=== PATIENT | female | born 2000 | race Caucasian/White ===

== ENCOUNTER 2023-09-22 10:03 | Outpatient (OUT) | payer MEDICAID, SELFPAY ==
--- NOTE | 2023-09-22 10:06 | US_ITS ---
[address] [address] Patient Name: ONEL GARCIA MRN: [id number] date: 2000 Sex: F Assigned Patient Location: [facility] Current Patient Location: [facility] Accession/Order Number: [id number] Exam Date: 09/22/2023 10:06 Report Date: 09/22/2023 11:03 At the request of: ANISA GARCIA Procedure: US OB >= 14 weeks Fetus EXAMINATION: US OB >= 14 weeks Fetus HISTORY: MISSED MENSES COMPARISON: No relevant comparison available. FINDINGS: Heart Rate: 160.0 bpm Amniotic Fluid Volume: Subjectively normal Number: 1.0 Placenta: Anterior Cervix: Closed, 3.9 cm The uterus is normal The ovaries are normal BIOMETRY: BPD: 3.7 cm cm; 17 weeks 3 days; 84% HC: 13.7 cmcm; 17 weeks 1 days , 70% AC: 12.4 cm cm; 18 weeks 0 days, 90% FL: 2.5 cm cm; 17 weeks 3 days; 79.5 % % EFW: 205.6 grams, 7 ounces, greater than 97% FL/AC: 20.1 FL/BPD: 66.3 HC/AC: 1.1 GESTATIONAL AGE: Age by EDC: 16 weeks 4 days DULCE by EDC: 03/04/2024 Age by US: 17 weeks 4 days DULCE by US: 02/26/2024 US/US OB >= 14 weeks Fetus IMPRESSION: Estimated weight greater than the 97th percentile Anderson intrauterine gestation measuring 17 weeks 4 days Electronically authenticated by: MALDONADO WILSON Date: 09/22/2023 11:03
== END 2023-09-22 10:04 | disposition home or self-care (01) ==
LOC: NOMS 10:04
PROVIDERS: Visit Provider Obstetrics & Gynecology
DX: Z34.92 Encounter for supervision of normal pregnancy, unspecified, second trimester (principal); Z3A.17 17 weeks gestation of pregnancy
CPT/HCPCS: 76815

== ENCOUNTER 2023-09-22 11:35 | Outpatient (OUT) | payer MEDICAID, SELFPAY ==
[2023-09-22 12:30] LABS: Basophils Percent Auto 0.2 % (0.2-2.0); Eosinophils Absolute Auto 0.2 10^3/uL (0.0-0.7); Hematocrit 35.7 % (36.0-48.0); Hemoglobin 12.1 g/dL (12.0-16.0); Immature Granulocytes Abs Auto 0.02 10^3/uL (0.00-0.03); Immature Granulocytes Pct Auto 0.2 % (0.0-0.5); Lymphocytes Absolute Auto 1.5 10^3/uL (1.2-3.8); Lymphocytes Percent Auto 16.9 % (20.5-60.0); Mean Corpuscular HGB Conc 33.9 g/dL (29.9-35.2); Mean Corpuscular Hemoglobin 29.7 pg (26.7-34.0); Mean Corpuscular Volume 87.7 fL (81.0-99.0); Mean Platelet Volume 12.1 fL (9.5-13.5); Monocytes Absolute Auto 0.5 10^3/uL (0.3-0.8); Monocytes Percent Auto 6.1 % (1.7-12.0); Neutrophils Absolute Auto 6.4 10^3/uL (1.4-6.5); Neutrophils Percent Auto 74.6 % (43.0-75.0); Platelet Count 166 10^3/uL (150-450); Red Blood Count 4.07 10^6/uL (4.20-5.40); Red Cell Distribution Width 12.9 % (11.0-15.0); White Blood Count 8.6 10^3/uL (4.0-11.0)
[2023-09-22 12:42] LABS: Estimated Average Glucose 85 mg/dL; Glycohemoglobin A1C 4.6 % (4.5-6.2)
[2023-09-22 16:08] LABS: BOX Test Sent Out Y
[2023-09-23 08:12] LABS: HBsAg Screen Negative (Negative); HCV Ab Non Reactive (Non Reactive); HIV Ab/p24 Ag Screen Non Reactive (Non Reactive); Rubella Antibodies, IgG <0.90 index (Immune >0.99)
[2023-09-23 11:14] LABS: Rapid Plasma Reagin, Quant Non Reactive titer (NonRea<1:1)
== END 2023-09-22 11:36 | disposition home or self-care (01) ==
LOC: LAB 11:36
PROVIDERS: Visit Provider Obstetrics & Gynecology
DX: Z34.92 Encounter for supervision of normal pregnancy, unspecified, second trimester (principal); Z3A.17 17 weeks gestation of pregnancy; Z36.0 Encounter for antenatal screening for chromosomal anomalies; N92.6 Irregular menstruation, unspecified
CPT/HCPCS: 36415; 76815; 83036; 85025; 86592; 86762; 86803; 86850; 86900; 86901; 87086; 87340; 87389

== ENCOUNTER 2023-10-23 20:49 | Outpatient (REF) | payer MEDICAID, SELFPAY ==
--- OUTSIDE RECORDS SUMMARY | 2023-10-23 21:06 | XMS_ITS | CCD ---
Author Organization [place] [address] [facility] [employer] [facility] Results Test Name Value Interpretation Reference Range Facil ity Outside Recordson 05-25-2022 Outside Records [id number]#1.00OTG TIFF [facility] Outside Records [id number]#1.00[facility] Outside Records [id number]#1.00OTG [facility] Outside Recordson 01-25-2022 Outside Records [id number]#1.00OT GTIFF [facility] Encounters Encounter Date Encounter Type Care Provider Facility Start: 09-22-2023 End: 09-22-2023 ambulatory Not Available Payers Date Payer Category Payer Medicaid [id number] 2000 Unknown [id number] Summary Purpose Family History No Family History Records FoundNo Family History Records Found Advance Directives No Advanced Directives Records FoundNo Advanced Directives Records Found Additional Source Comments INFORMATION SOURCE (unrecogn ized section and content) DATE CREATED AUTHOR 05/25/2022 [facility] DATE CREATED AUTHOR AUTHORJean-Claude SCHUSTER 09/23/2023 [facility] EPIC FOR RECORDS PERTAINING TO PATIENTS WHO ARE OR HAVE BEEN ENROLLED IN A CHEMICAL DEPENDENCY/SUBSTANCEABUSE PROGRAM, SOME INFORMATION MAY BE OMITTED. This clinical summary was aggregated from multiple sources. Caution should be exercised in using it in the provision of clinical care. This summary normalizes information from multiple sources, and as a consequence, information in this document may materially change the coding, format and clinical context of patient data. In addition, data may be omitted in some cases. CLINICAL DECISIONS SHOULD BE BASED ON THE PRIMARY CLINICAL RECORDS. [facility] [employer] [facility]. provides no warranty or guarantee of the accuracy or completeness of information in this document.
[2023-10-26 11:09] LABS: Age Gdln ACOG Testing Note (.); IGP, rfx Aptima HPV ASCU Note (.)
== END 2023-10-23 20:50 | disposition home or self-care (01) ==
LOC: LAB 20:49
PROVIDERS: Visit Provider Obstetrics & Gynecology
DX: Z01.419 Encounter for gynecological examination (general) (routine) without abnormal findings (principal)
CPT/HCPCS: 88175

== ENCOUNTER 2023-12-18 07:36 | Outpatient (RCR) | payer MEDICAID, SELFPAY ==
--- NOTE | 2023-12-18 | US_ITS ---
[address] [address] Patient Name: ONEL GARCIA MRN: [id number] date: 2000 Sex: F Assigned Patient Location: LAB Current Patient Location: LAB Accession/Order Number: [id number] Exam Date: 12/18/2023 12:55 Report Date: 12/18/2023 14:51 At the request of: ANISA GARCIA Procedure: US OB anatomy EXAMINATION: US OB anatomy HISTORY: Screening for anatomy COMPARISON: No relevant comparison available. TECHNIQUE: Transabdominal sonographic examination was performed for obstetrical and evaluation. FINDINGS: Number: 1 Heart Rate: 138.46 bpm H.B. /min Amniotic Fluid Volume: Subjectively normal Placenta: Anterior, grade 1. The placental edge is 8.1 cm from the internal cervical os Placental Location: ANTERIOR Cervix Length: 3.3 cm, closed Normal anatomy: Nose, lips, orbits, four-chamber heart, RVOT, LVOT, diaphragm, stomach, kidneys, abdominal cord insertion, bladder, umbilical arteries, three-vessel cord, spine, extremities Suboptimal visualization: Lateral ventricles, cerebellum, posterior fossa BIOMETRY: BPD: 7.36 cm; 29 weeks 4 days; 24 % HC: 27.99 cm; 30 weeks 5 days; 32.50 % AC: 25.13 cm; 29 weeks 2 days; 25.40 % FL: 5.47 cm; 28 weeks 6 days; 10.90 % EFW:1375.07 g; 17.60 %, 3 lbs. 1 oz. FL/AC: 21.77 FL/BPD: 74.32 HC/AC: 1.11 GESTATIONAL AGE: Age by EDC: 30 weeks 0 days DULCE by EDC: 2024-02-26 Age by current US: 29 weeks 4 days DULCE by current US: 2024-02-29 US/US OB anatomy IMPRESSION: Suboptimal visualization of intracranial anatomy secondary to advanced gestational age Viable franco intrauterine gestation measuring 29 weeks 4 days Closed cervix measuring 3.3 cm in length *Reference: [employer] Practice Guideline for the performance of Obstetric Ultrasound Examinations, January 08, 2007. Electronically authenticated by: MALDONADO WILSON Date: 12/18/2023 14:51
[2023-12-18 13:44] LABS: Basophils Percent Auto 0.2 % (0.2-2.0); Eosinophils Absolute Auto 0.1 10^3/uL (0.0-0.7); Eosinophils Percent Auto 0.5 % (0.9-7.0); Hemoglobin 12.2 g/dL (12.0-16.0); Immature Granulocytes Abs Auto 0.05 10^3/uL (0.00-0.03); Immature Granulocytes Pct Auto 0.4 % (0.0-0.5); Lymphocytes Absolute Auto 1.5 10^3/uL (1.2-3.8); Lymphocytes Percent Auto 13.1 % (20.5-60.0); Mean Corpuscular HGB Conc 33.9 g/dL (29.9-35.2); Mean Corpuscular Hemoglobin 30.3 pg (26.7-34.0); Mean Corpuscular Volume 89.3 fL (81.0-99.0); Mean Platelet Volume 11.5 fL (9.5-13.5); Monocytes Absolute Auto 0.8 10^3/uL (0.3-0.8); Monocytes Percent Auto 6.4 % (1.7-12.0); Neutrophils Absolute Auto 9.4 10^3/uL (1.4-6.5); Neutrophils Percent Auto 79.4 % (43.0-75.0); Platelet Count 197 10^3/uL (150-450); Red Blood Count 4.03 10^6/uL (4.20-5.40); Red Cell Distribution Width 12.9 % (11.0-15.0); White Blood Count 11.8 10^3/uL (4.0-11.0)
[2023-12-18 13:51] LABS: Glucose 1 Hour 123 mg/dL (<130)
[2023-12-18 13:56] VITALS: BP 138/79; PULSE 104; TEMP 36.6; O2SAT 99
[2023-12-18] MEDS: RHO(D) IMMUNE GLOBULIN 1,500 UNIT SYRINGE 1500 UNIT IM (13:59)
--- NOTE | 2023-12-18 14:10 | PC.NURSE ---
1356: Pt. to [facility] amb. accompanied by sig. other. Seated in recliner. VSS. Relays receiving Rhogam with past with no adverse reaction. Medicated with Rhophylac as ordered, see documentation. No bleeding to site. Bandaid placed prophylactically. Pt. tolerated without c/o. Given bottled water. 1409: Pt. without changes. No bleeding to injection site. D/c'd amb. to home.
== END 2024-01-08 12:14 | disposition home or self-care (01) ==
LOC: LAB 07:36
PROVIDERS: Visit Provider Obstetrics & Gynecology
DX: O26.893 Other specified pregnancy related conditions, third trimester (principal); Z67.91 Unspecified blood type, Rh negative; Z36.89 Encounter for other specified antenatal screening; Z3A.30 30 weeks gestation of pregnancy
CPT/HCPCS: 36415; 76805; 82950; 85025; 86850; 86900; 86901; J2791

== ENCOUNTER 2024-01-30 19:30 | Outpatient (REF) | payer MEDICAID, SELFPAY ==
--- OUTSIDE RECORDS SUMMARY | 2024-01-30 19:34 | XMS_ITS | CCD ---
Author Organization [facility] Care Team Providers Care Die Storage Clerk Name Role Phone BEN MONTALVO Admitting Unavailable BEN MONTALVO Attending Unavailable ANABEL COOL Primary Care Unavailable ANISA MAGALLANES Attending Unavailable GUILLERMINA MULLER Attending Unavailable GUILLERMINA MULLER Attending Unavailable Unavailable Primary Care Provider Unavailabl e Medications Current Medications Medication Drug Class(es) Dates Sig (Normalized) Sig (Original) docusate sodium 100 mg oral capsule (1 source) Start: 12-06-2023 take 1 capsule by mouth three times daily as needed Docusate Sodium (DSS) 100 MG capsule Take 100 mg by mouth 3 (three) times a day as needed 12/06/2023 Active omeprazole 40 mg delayed release oral capsule (1 source) Proton Pump Inhibitor Start: 12-06-2023 take 1 capsule by mouth in the morning omeprazole (PriLOSEC) [address] capsule Take 40 mg by mouth in the morning. 12/06/2023 Active Problems Problem Classification Problem Date Documented Da te Episodic/Chronic Abdominal pain (1 source) Abdominal pain Onset: 12-06-2023 Episodic Other complications of (1 source) Late vomiting of ; Translations: [Late vomiting of ] Onset: 12-06-2023 Episodic Results Test Name Value Interpretation Reference Range Facil ity CBC AND AUTO DIFFon 12-06-19 ABSOLUTE BASOPHIL 0.0 X10E9/L [facility]0-0.2 [facility] Comment on above: Performed By: #### C BCA, CMP, 2532-0, 3084-1 #### [facility] ([id number]) [address] [place] [address], [place] [address] ABSOLUTE NEUTROPHIL 8.7 X10E9/L High 1.5-6.6 [facility] Comment on above: Performed By: #### C CORIN CMP, 0, 3083-04 #### [facility] ([id number]) [address] [place] [address] 73223 Basophils/100 WBC (Bld) 0.3 % Normal [facility] Comment on above: Performed By: #### C CORIN CMP, 0, 3083- #### [facility] ([id number]) [address] [place] [address] 20236 Eosinophils (Bld) [#/Vol] 0.1 10*3/uL Normal 0.0-0.4 [facility] Comment on above: Performed By: #### Karthikeyan COOMBS CMP, 0, 3083-04 #### [facility] ([id number]) [address] [place] [address] 35566 Eosinophils/100 WBC (Bld) 0.5 % Normal [facility] Comment on above: Performed By: #### Karthikeyan COOMBS CMP, 0, 3083-04 #### [facility] ([id number]) [address] [place] [address] 61073 Erythrocyte distribution width (RBC) [Ratio] 13.5 % Normal 11.5-15.0 [facility] Comment on above: Performed By: #### Karthikeyan COOMBS CMP, 0, 3083-04 #### [facility] ([id number]) [address] [place] [address] 96308 Hematocrit (Bld) [Volume fraction] 38.3 % Normal 35-47 [facility] Comment on above: Performed By: #### Karthikeyan COOMBS CMP, 0, 3083-04 #### [facility] ([id number]) [address] [place] [address] 68316 Hemoglobin (Bld) [Mass/Vol] 13.2 g/dL Normal 11.7-15.5 [facility] Comment on above: Performed By: #### C HEMANT COOMBS, 0, 3083-04 #### [facility] ([id number]) [address] [place] [address] 85555 Lymphocytes (Bld) [#/Vol] 1.3 10*3/uL Normal 1.0-3.5 [facility] Comment on above: Performed By: #### C HEMANT COOMBS, 0, 3083-04 #### [facility] ([id number]) [address] [place] [address] 70665 Lymphocytes/100 WBC (Bld) 12.5 % Normal [facility] Comment on above: Performed By: #### C HEMANT COOMBS, 0, 3083-04 #### [facility] ([id number]) [address] [place] [address] 83843 MCH (RBC) [Entitic mass] 31.2 pg Normal 27-34 [facility] Comment on above: Performed By: #### C HEMANT COOMBS, 0, 3083-04 #### [facility] ([id number]) [address] [place] [address] 45693 MCHC (RBC) [Mass/Vol] 34.5 g/dL Normal 32-36 [facility] Comment on above: Performed By: #### C HEMANT COOMBS, 0, 3083-04 #### [facility] ([id number]) [address] [place] [address] 12381 MCV (RBC) [Entitic vol] 90 fL Normal 80-100 [facility] Comment on above: Performed By: #### C HEMANT COOMBS, 0, 3083-04 #### [facility] ([id number]) [address] [place] [address] 21265 Monocytes (Bld) [#/Vol] 0.7 10*3/uL Normal 0-0.9 [facility] Comment on above: Performed By: #### C CORIN CMP, 0, 3083-04 #### [facility] ([id number]) [address] [place] [address] 90700 Monocytes/100 WBC (Bld) 6.3 % Normal [facility] Comment on above: Performed By: #### C CORIN CMP, 0, 3083-04 #### [facility] ([id number]) [address] [place] [address] 42966 Neutrophils/100 WBC (Bld) 80.4 % Normal [facility] Comment on above: Performed By: #### C CORIN CMP, 0, 3083-04 #### [facility] ([id number]) [address] [place] [address] 93205 Platelet mean volume (Bld) [Entitic vol] 10.0 fL Normal 7-12 [facility] Comment on above: Performed By: #### C CORIN CMP, 0, 3083-04 #### [facility] ([id number]) [address] [place] [address] 98702 Platelets (Bld) [#/Vol] 205 10*3/uL Normal 150-450 [facility] Comment on above: Performed By: #### C CORIN CMP, 0, 3083-04 #### [facility] ([id number]) [address] [place] [address] [place] [address] RBC COUNT 4.25 X10E12/L Normal 3.80-5.20 [facility] Comment on above: Performed By: #### C CORIN CMP, 0, 3083-04 #### [facility] ([id number]) [address] [place] [address] 91806 WBC (Bld) [#/Vol] 10.8 10*3/uL Normal 4.0-11.0 [facility] Comment on above: Performed By: #### C BCA, CMP, 2532-0, 3084-1 #### [facility] ([id number]) [address] [place] [address] 54889 COMPREHENSIVE METABOLIC PANE Sg 12-06-2023 Albumin [Mass/Vol] 3.7 g/dL Normal 3.2-5.3 [facility] Comment on above: Performed By: #### C BCA, CMP, 2532-0, 4-1 #### [facility] ([id number]) [address] [place] [address] 23127 ALP [Catalytic activity/Vol] 86 U/L Normal 39-130 [facility] Comment on above: Performed By: #### C BCA, CMP, 2531-0, 4-1 #### [facility] ([id number]) [address] [place] [address] [place] [address] ALT [Catalytic activity/Vol] 39 U/L High 0-31 [facility] Comment on above: Performed By: #### C BCA, CMP, 2531-0, 3084-1 #### [facility] ([id number]) [address] [place] [address] 09299 Anion gap [Moles/Vol] 9 mmol/L Normal 5-15 [facility] Comment on above: Performed By: #### C BCA, CMP, 2-0, 3083-1 #### [facility] ([id number]) [address] [place] [address] 32180 AST [Catalytic activity/Vol] 40 U/L Normal 0-41 [facility] Comment on above: Performed By: #### C BCA, CMP, 2532-0, 3084-1 #### [facility] ([id number]) [address] [place] [address] 02708 Bilirubin [Mass/Vol] 0.7 mg/dL Normal 0.3-1.2 [facility] Comment on above: Performed By: #### C BCA, CMP, 2532-0, 3083-1 #### [facility] ([id number]) [address] [place] [address] 07038 Calcium [Mass/Vol] 8.8 mg/dL Normal 8.5-10.5 [facility] Comment on above: Performed By: #### C BCA, CMP, 2532-0, 3083-1 #### [facility] ([id number]) [address] [place] [address] 52152 Chloride [Moles/Vol] 104 mmol/L Normal 98-109 [facility] Comment on above: Performed By: #### C BCA, CMP, 2532-0, 3083- #### [facility] ([id number]) [address] [place] [address] 56786 CO2 [Moles/Vol] 21 mmol/L Low 22-32 [facility] Comment on above: Performed By: #### C BCA, CMP, 2532-0, 3083-1 #### [facility] ([id number]) [address] [place] [address] 64819 Creatinine [Mass/Vol] 0.65 mg/dL Normal 0.40-1.00 [facility] Comment on above: Result Comment: METH OD TRACEABLE TO IDMS STANDARD Performed By: #### C BCA, CMP, 2532-0, 3083-04 #### [facility] ([id number]) [address] [place] [address] 62880 eGFR (CKD-EPI) NON-RACE DEPENDENT >90 Normal >59 [facility] Comment on above: Result Comment: Reported eGFR is based on the CKD-EPI 2020 equation that does not use a race coefficient. Performed By: #### C BCA, CMP, 2532-0, 3083-1 #### [facility] ([id number]) [address] [place] [address] 45911 Glucose [Mass/Vol] 94 mg/dL Normal 65-99 [facility] Comment on above: Performed By: #### C CORIN CMP, 2532-0, 3083-1 #### [facility] ([id number]) [address] [place] [address] 03914 Potassium [Moles/Vol] 3.3 mmol/L Low 3.5-5.0 [facility] Comment on above: Performed By: #### C CORIN, CMP, 2531-0, 3083- #### [facility] ([id number]) [address] [place] [address] 15493 Protein [Mass/Vol] 7.1 g/dL Normal 6.0-8.0 [facility] Comment on above: Performed By: #### C CORIN, CMP, 0, 3083-04 #### [facility] ([id number]) [address] [place] [address] 88759 Sodium [Moles/Vol] 134 mmol/L Normal 134-146 [facility] Comment on above: Performed By: #### C CORIN, CMP, 0, 3083-04 #### [facility] ([id number]) [address] [place] [address] 01222 Urea nitrogen [Mass/Vol] 9 mg/dL Normal 5-23 [facility] Comment on above: Performed By: #### C BCA, CMP, 0, 3083- #### [facility] ([id number]) [address] [place] [address] 40770 LDH [Catalytic activity/Vol] on 12-06-2023 LDH 110 U/L Normal 100-235 [facility] Comment on above: Performed By: #### C BCA, CMP, 2-0, 3083- #### [facility] ([id number]) [address] [place] [address] 69482 PROTEIN CREAT RATIOon 2023 RANDOM URINE PROTEIN 380 mg/L High <120 [facility] Comment on above: Performed By: #### U PCR #### [facility] ([id number]) [address] [place] [address] 08654 U/PRO/CUB REPORTER RATIO CALC 0.09 Normal <0.2 [facility] Comment on above: Result Comment: Neph rotic Syndrome is associated with ratios >3.5 Performed By: #### U PCR #### [facility] ([id number]) [address] [place] [address] 27340 URINE CREATININE,RDM 433.01 mg/dL Normal Pr [facility] Comment on above: Performed By: #### U PCR #### [facility] ([id number]) [address] [place] [address] 45045 URIC ACIDon 12-06-2023 Urate [Mass/Vol] 4.1 mg/dL Normal 2.6-7.2 [facility] Comment on above: Performed By: #### C BCA, CMP, 2532-0, 3084-1 #### [facility] ([id number]) [address] [place] [address] 11414 URINALYSISon 12-06-2023 Bilirubin Ql (U) Large Abnormal NEG [facility] Comment on above: Result Comment: Not confirmed, interpret positive results with caution. Performed By: #### U A #### [facility] ([id number]) [address] [place] [address] 26941 BLOOD/HGB Negative Normal NEG [facility] Comment on above: Performed By: #### U A #### [facility] ([id number]) [address] [place] [address] 34677 Color (U) YELLOW Normal YELLOW [facility] Comment on above: Performed By: #### U A #### [facility] ([id number]) [address] [place] [address] 34338 Glucose Ql (U) Negative Normal NEG [facility] Comment on above: Performed By: #### U A #### [facility] ([id number]) [address] [place] [address] 41306 Ketones Ql (U) >80 Abnormal NEG [facility] Comment on above: Performed By: #### U A #### [facility] ([id number]) [address] [place] [address] 50882 Leukocyte esterase Test strip Ql (U) Trace Abnormal NEG [facility] Comment on above: Performed By: #### U A #### [facility] ([id number]) [address] [place] [address] 04857 MUCOUS PRESENT Abnormal NONE [facility] Comment on above: Performed By: #### U A #### [facility] ([id number]) [address] [place] [address] 47335 Nitrite Ql (U) Positive Abnormal NEG [facility] Comment on above: Performed By: #### U A #### [facility] ([id number]) [address] [place] [address] 17427 pH (U) 7.0 [pH] Normal 5.0-8.5 [facility] Comment on above: Performed By: #### U A #### [facility] ([id number]) [address] [place] [address] 91198 Protein Ql (U) 100 mg/dL Abnormal NEG [facility] Comment on above: Performed By: #### U A #### [facility] ([id number]) [address] [place] [address] 10078 R.B.CELLS 4 /hpf Normal 0-5 [facility] Comment on above: Performed By: #### U A #### [facility] ([id number]) [address] [place] [address] 26834 Specific gravity (U) [Rel density] 1.020 Normal 1.003-1.035 [facility] Comment on above: Performed By: #### U A #### [facility] ([id number]) [address] [place] [address] 96725 SQUAMOUS EPITHELIUM 38 /hpf High 0-5 [facility] Comment on above: Performed By: #### U A #### [facility] ([id number]) [address] [place] [address] 39109 TURBIDITY HAZY Abnormal CLEAR [facility] Comment on above: Performed By: #### U A #### [facility] ([id number]) [address] [place] [address] 02737 Urobilinogen Qn (U) 1.0 {Rod'U}/dL Normal <1.1 [facility] Comment on above: Performed By: #### U A #### [facility] ([id number]) [address] [place] [address] 04530 W.B.CELLS 20 /hpf High 0-5 [facility] Comment on above: Performed By: #### U A #### [facility] ([id number]) [address] [place] [address] 12624 URINE CULTUREon 12-06-2023 Bacteria identified Cx Nom (U) SPECIMEN NOTES URINE RECEIVED WITHOUT PRESERVATIVE CULTURE RESULTS NO GROWTH AT <1000 CFU/mL Normal [facility] Comment on above: Performed By: #### 6 30-4 #### [facility] ([id number]) [address], [address] [place] [address] Outside [employer]son 05-25-2022 Outside Records [id number] [facility] [id number] [facility] [id number] [facility] 01-25-2022 Outside Records [id number] 7[facility] Encounter Date Encounter Type Care Provider Facility Start: 01-29-2024 End: 01-29-2024 Bamboo flowsheet Anisa Elpidio DO Work Phone: [facility] Start: 01-29-2024 End: 01-29-2024 Bamboo flowsheet Anisa Elpidio DO Work Phone: [facility] Start: 12-18-2023 End: 12-18-2023 ambulatory GUILLERMINA MULLER Not Available Start: 12-06-2023 End: 12-06-2023 ambulatory [facility] Start: 12-04-2023 End: 12-04-2023 ambulatory GUILLERMINA RENZO Not Available Start: 10-23-2023 End: 10-23-2023 ambulatory ANISA ELPIDIO Not Available Start: 09-22-2023 End: 09-22-2023 ambulatory ANISA ELPIDIO Not Available Plan of Treatment Date Care Activity Detail Author Start: 01-29-2024 End: 01-29-2024 Patient encounter procedure 01/29/2024 1:50 PM EDT Routine [facility] [address] [place] [address] Anisa Magallanes, DO [address] [place], [place] [id number] Arrived [facility] Comment on above: Arrived Payers Date Payer Category Payer Medicaid [employer] [place] [place] [id number] 2022 Medicaid [id number] 2000 Unknown [id number] 2000 Unknown [id number] 2000 Unknown [id number] 2000 Unknown [id number] 2000 Unknown [id number] Social History Date Type Detail Facility Tobacco smoking stat [facility] Tobacco smoking consumption unknown [facility] Start: 06-05-2023 [facility] Start: 2000 Sex assigned at Not on file [facility] Gender identity Not on file [facility] are Summary Purpose Family History No Family History Records FoundNo Family History Records FoundNo Family History Records Found Advance Directives No Advanced Directives Records FoundNo Advanced Directives Records FoundNo Advanced Directives Records Found Additional Source Comments INFORMATION SOURCE (unrecogn ized section and content) DATE CREATED AUTHOR 05/25/2022 [facility] DATE CREATED AUTHOR AUTHOR'S ORGANIZ ATION 12/08/2023 [facility] DATE CREATED AUTHOR AUTHOR'S ORGANIZ ATION 12/19/2023 [facility] EPIC FOR RECORDS PERTAINING TO PATIENTS [...] BE BASED ON THE PRIMARY CLINICAL RECORDS. [facility] [employer] [facility]. provides no warranty or guarantee of the accuracy or completeness of information in this document.
== END 2024-01-30 19:31 | disposition home or self-care (01) ==
LOC: LAB 19:30
PROVIDERS: Visit Provider Obstetrics & Gynecology
DX: Z34.93 Encounter for supervision of normal pregnancy, unspecified, third trimester (principal); Z3A.36 36 weeks gestation of pregnancy
CPT/HCPCS: 87081; 87150

== ENCOUNTER 2024-02-19 05:45 | Inpatient (IN) | payer MEDICAID, SELFPAY ==
[2024-02-19] VITALS (19 sets, daily range): BP systolic 101–157; BP diastolic 56–81; PULSE 60–103; TEMP 36.3–36.6
--- OUTSIDE RECORDS SUMMARY | 2024-02-19 05:48 | XMS_ITS | CCD ---
Author Organization [facility] Care Team Providers Care Special Ed Assistant Name Role Phone BEN MONTALVO Admitting Unavailable BEN MONTALVO Attending Unavailable ANNABEL COOL Primary Care Unavailable Unavailable Primary Care Provider UnavailANISA Dexter Attending Unavailable YUSRA MULLER Attending Unavailable YUSRA MULLER Attending Unavailable ANISA MAGALLANES Attending Unavailable ANISA MAGALLANES Attending Unavailable RENZO, YUSRA Attending Unavailable RENZO, YUSRA Attending Unavailable Medications Current Medications Medication Drug Class(es) Dates Sig (Normalized) Sig (Original) docusate sodium 100 mg oral capsule (10 sources) Start: 12-06-2023 take 1 capsule by mouth three times daily as needed Docusate Sodium (DSS) 100 MG capsule Take 100 mg by mouth 3 (three) times a day as needed 12/06/2023 Active omeprazole 40 mg delayed release oral capsule (10 sources) Proton Pump Inhibitor Start: 12-06-2023 take 1 capsule by mouth in the morning omeprazole (PriLOSEC) [address] capsule Take 40 mg by mouth in the morning. 12/06/2023 Active ondansetron 4 mg disintegrating oral tablet (9 sources) Serotonin-3 Receptor Antagonist Start: 01-29-2024 End: 02-28-2024 take 1 tablet by mouth every six hours for nausea ondansetron ODT (Zofran-ODT) 4 MG disintegrating tablet Indications: Nausea and vomiting in Take 1 tablet (4 mg) by mouth every 6 (six) hours if needed for nausea or vomiting 30 tablet 2 01/29/2024 02/28/2024 Active Problems Problem Classification Problem Date Documented Da te Episodic/Chronic Abdominal pain (1 source) Abdominal pain Onset: 12-06-2023 Episodic Other complications of (1 source) Late vomiting of ; Translations: [Late vomiting of ] Onset: 12-06-2023 Episodic Other and delivery including normal (6 sources) Third trimester ; Translations: [Encounter for supervision of normal , unspecified, third trimester] 01-30-2024 Episodic Residual codes; unclassified (2 sources) Gestation period, 36 weeks; Translations: [36 weeks gestation of ] 01-30-2024 Episodic Residual codes; unclassified (2 sources) Gestation period, 37 weeks; Translations: [37 weeks gestation of ] 02-06-2024 Episodic Residual codes; unclassified (2 sources) Gestation period, 38 weeks; Translations: [38 weeks gestation of ] 02-15-2024 Episodic Results Test Name Value Interpretation Reference Range Facil ity Urinalysis macro (dipstick) panel (U)on 02-15-2024 Bilirubin, UA Positive Negative - 4(70) +++ mg/dL [facility] Comment on above: small Blood, UA Negative Negative - 50 Jae/mcL [facility] Clarity, UA Cloudy [facility] Color, UA Yellow [facility] Glucose, UA Negative Negative - 1999(110) ++++ mg/dL [facility] Interpretation and review of laboratory results Abnormal [facility] Ketones, UA Positive Negative - 160(16) ++++ mg/dL [facility] Comment on above: trace Leukocytes, UA Positive Negative - 500+++ Allison/mcL [facility] Comment on above: small Nitrite, UA Negative Negative - Positive [facility] pH, UA 7 5 - 9 [facility] Protein, UA Positive Negative - 1999(20) ++++ mg/dL [facility] Comment on above: 30 Spec Grav, UA 1.03 1 - 1.03 [facility] Urobilinogen, UA 1.0 0.2 - 12 mg/dL [facility] CBC AND AUTO DIFFon 12-06-19 24 ABSOLUTE BASOPHIL 0.0 X10E9/L Normal 0.0-0.2 [facility] Comment on above: Performed By: #### C BCA, CMP, 2532-0, 3084-1 #### [facility] ([id number]) [address] [place] [address], [place] [address] ABSOLUTE NEUTROPHIL 8.7 X10E9/L High 1.5-6.6 [facility] Comment on above: Performed By: #### Karthikeyan COOMBS CMP, 0, 3083-04 #### [facility] ([id number]) [address] [place] [address] 90259 Basophils/100 WBC (Bld) 0.3 % Normal [facility] Comment on above: Performed By: #### Karthikeyan COOMBS CMP, 0, 3083-04 #### [facility] ([id number]) [address] [place] [address] 23265 Eosinophils (Bld) [#/Vol] 0.1 10*3/uL Normal 0.0-0.4 [facility] Comment on above: Performed By: #### Karthikeyan COOMBS CMP, 0, 3083-04 #### [facility] ([id number]) [address] [place] [address] 65054 Eosinophils/100 WBC (Bld) 0.5 % Normal [facility] Comment on above: Performed By: #### Karthikeyan COOMBS CMP, 0, 3083-04 #### [facility] ([id number]) [address] [place] [address] 74897 Erythrocyte distribution width (RBC) [Ratio] 13.5 % Normal 11.5-15.0 [facility] Comment on above: Performed By: #### Karthikeyan COOMBS CMP, 0, 3083-04 #### [facility] ([id number]) [address] [place] [address] 97373 Hematocrit (Bld) [Volume fraction] 38.3 % Normal 35-47 [facility] Comment on above: Performed By: #### Karthikeyan COOMBS CMP, 0, 3083-04 #### [facility] ([id number]) [address] [place] [address] 70252 Hemoglobin (Bld) [Mass/Vol] 13.2 g/dL Normal 11.7-15.5 [facility] Comment on above: Performed By: #### C HEMANT COOMBS, 0, 3083-04 #### [facility] ([id number]) [address] [place] [address] 23680 Lymphocytes (Bld) [#/Vol] 1.3 10*3/uL Normal 1.0-3.5 [facility] Comment on above: Performed By: #### Karthikeyan COOMBS CMP, 0, 3083-04 #### [facility] ([id number]) [address] [place] [address] 91885 Lymphocytes/100 WBC (Bld) 12.5 % Normal [facility] Comment on above: Performed By: #### Karthikeyan COOMBS CMP, 0, 3083-04 #### [facility] ([id number]) [address] [place] [address] 86151 MCH (RBC) [Entitic mass] 31.2 pg Normal 27-34 [facility] Comment on above: Performed By: #### Karthikeyan COOMBS CMP, 0, 3083-04 #### [facility] ([id number]) [address] [place] [address] 91669 MCHC (RBC) [Mass/Vol] 34.5 g/dL Normal 32-36 [facility] Comment on above: Performed By: #### Karthikeyan COOBMS CMP, 0, 3083-04 #### [facility] ([id number]) [address] [place] [address] 95365 MCV (RBC) [Entitic vol] 90 fL Normal 80-100 [facility] Comment on above: Performed By: #### Karthikeyan COOMBS CMP, 0, 3083-04 #### [facility] ([id number]) [address] [place] [address] 35874 Monocytes (Bld) [#/Vol] 0.7 10*3/uL Normal 0-0.9 [facility] Comment on above: Performed By: #### C CORIN CMP, 0, 3083-04 #### [facility] ([id number]) [address] [place] [address] 82042 Monocytes/100 WBC (Bld) 6.3 % Normal [facility] Comment on above: Performed By: #### Karthikeyan COOMBS CMP, 2531-0, 3083-04 #### [facility] ([id number]) [address] [place] [address] 72437 Neutrophils/100 WBC (Bld) 80.4 % Normal [facility] Comment on above: Performed By: #### C CORIN CMP, 0, 3083-04 #### [facility] ([id number]) [address] [place] [address] 76360 Platelet mean volume (Bld) [Entitic vol] 10.0 fL Normal 7-12 [facility] Comment on above: Performed By: #### Karthikeyan COOMBS CMP, 0, 3083-04 #### [facility] ([id number]) [address] [place] [address] 64750 Platelets (Bld) [#/Vol] 205 10*3/uL Normal 150-450 [facility] Comment on above: Performed By: #### Karthikeyan COOMBS CMP, 0, 3083-04 #### [facility] ([id number]) [address] [place] [address] 71899 RBC COUNT 4.25 X10E12/L Normal 3.80-5.20 [facility] Comment on above: Performed By: #### C CORIN, CMP, 2531-0, 3083-04 #### [facility] ([id number]) [address] [place] [address] 49948 WBC (Bld) [#/Vol] 10.8 10*3/uL Normal 4.0-11.0 [facility] Comment on above: Performed By: #### C BCA, CMP, 2532-0, 3084-1 #### [facility] ([id number]) [address] [place] [address] 99621 COMPREHENSIVE METABOLIC PANE Sg 12-06-2023 Albumin [Mass/Vol] 3.7 g/dL Normal 3.2-5.3 [facility] Comment on above: Performed By: #### C BCA, CMP, 2532-0, 3084-1 #### [facility] ([id number]) [address] [place] [address] 62602 ALP [Catalytic activity/Vol] 86 U/L Normal 39-130 [facility] Comment on above: Performed By: #### C BCA, CMP, 2532-0, 3084-1 #### [facility] ([id number]) [address] [place] [address] 32492 ALT [Catalytic activity/Vol] 39 U/L High 0-31 [facility] Comment on above: Performed By: #### C BCA, CMP, 2532-0, 3084-1 #### [facility] ([id number]) [address] [place] [address] 37751 Anion gap [Moles/Vol] 9 mmol/L Normal 5-15 [facility] Comment on above: Performed By: #### C BCA, CMP, 2532-0, 3084-1 #### [facility] ([id number]) [address] [place] [address] 16492 AST [Catalytic activity/Vol] 40 U/L Normal 0-41 [facility] Comment on above: Performed By: #### C BCA, CMP, 2532-0, 3084-1 #### [facility] ([id number]) [address] [place] [address] 83145 Bilirubin [Mass/Vol] 0.7 mg/dL Normal 0.3-1.2 [facility] Comment on above: Performed By: #### C CORIN CMP, 2532-0, 3083-1 #### [facility] ([id number]) [address] [place] [address] 20202 Calcium [Mass/Vol] 8.8 mg/dL Normal 8.5-10.5 [facility] Comment on above: Performed By: #### C CORIN, CMP, 2-0, 3083-1 #### [facility] ([id number]) [address] [place] [address] 39437 Chloride [Moles/Vol] 104 mmol/L Normal 98-109 [facility] Comment on above: Performed By: #### C CORIN CMP, 0, 3083-04 #### [facility] ([id number]) [address] [place] [address] 44819 CO2 [Moles/Vol] 21 mmol/L Low 22-32 [facility] Comment on above: Performed By: #### C CORIN CMP, 0, 3083-04 #### [facility] ([id number]) [address] [place] [address] 27234 Creatinine [Mass/Vol] 0.65 mg/dL Normal 0.40-1.00 [facility] Comment on above: Result Comment: METH OD TRACEABLE TO IDMS STANDARD Performed By: #### C CORIN, CMP, 2531-0, 3083-04 #### [facility] ([id number]) [address] [place] [address] 41709 eGFR (CKD-EPI) NON-RACE DEPENDENT >90 Normal >59 [facility] Comment on above: Result Comment: Reported eGFR is based on the CKD-EPI 2020 equation that does not use a race coefficient. Performed By: #### C BCA, CMP, 2531-0, 3083- #### [facility] ([id number]) [address] [place] [address] 59904 Glucose [Mass/Vol] 94 mg/dL Normal 65-99 [facility] Comment on above: Performed By: #### C CORIN, CMP, 2532-0, 3083-1 #### [facility] ([id number]) [address] [place] [address] 79907 Potassium [Moles/Vol] 3.3 mmol/L Low 3.5-5.0 [facility] Comment on above: Performed By: #### C CORIN, CMP, 2531-0, 3083- #### [facility] ([id number]) [address] [place] [address] 91585 Protein [Mass/Vol] 7.1 g/dL Normal 6.0-8.0 [facility] Comment on above: Performed By: #### C BCA, CMP, 0, 3083-04 #### [facility] ([id number]) [address] [place] [address] 01382 Sodium [Moles/Vol] 134 mmol/L Normal 134-146 [facility] Comment on above: Performed By: #### C BCA, CMP, 2530, 3083- #### [facility] ([id number]) [address] [place] [address] 63874 Urea nitrogen [Mass/Vol] 9 mg/dL Normal 5-23 [facility] Comment on above: Performed By: #### C BCA, CMP, 0, 3083- #### [facility] ([id number]) [address] [place] [address] 52915 LDH [Catalytic activity/Vol] on 12-06-2023 LDH 110 U/L Normal 100-235 [facility] Comment on above: Performed By: #### C BCA, CMP, 2531-0, 3083- #### [facility] ([id number]) [address] [place] [address] 67467 PROTEIN CREAT RATIOon 2023 RANDOM URINE PROTEIN 380 mg/L High <120 [facility] Comment on above: Performed By: #### U PCR #### [facility] ([id number]) [address] [place] [address] 26989 U/PRO/BANK ACCOUNTANT RATIO CALC 0.09 Normal <0.2 [facility] Comment on above: Result Comment: Neph rotic Syndrome is associated with ratios >3.5 Performed By: #### U PCR #### [facility] ([id number]) [address] [place] [address] 88869 URINE CREATININE,RDM 433.01 mg/dL Normal Pr [facility] Comment on above: Performed By: #### U PCR #### [facility] ([id number]) [address] [place] [address] 34701 URIC ACIDon 12-06-2023 Urate [Mass/Vol] 4.1 mg/dL Normal 2.6-7.2 [facility] Comment on above: Performed By: #### C BCA, CMP, 2532-0, 3084-1 #### [facility] ([id number]) [address] [place] [address] 75904 URINALYSISon 12-06-2023 Bilirubin Ql (U) Large Abnormal NEG [facility] Comment on above: Result Comment: Not confirmed, interpret positive results with caution. Performed By: #### U A #### [facility] ([id number]) [address] [place] [address] 29284 BLOOD/HGB Negative Normal NEG [facility] Comment on above: Performed By: #### U A #### [facility] ([id number]) [address] [place] [address] 72423 Color (U) YELLOW Normal YELLOW [facility] Comment on above: Performed By: #### U A #### [facility] ([id number]) [address] [place] [address] 39936 Glucose Ql (U) Negative Normal NEG [facility] Comment on above: Performed By: #### U A #### [facility] ([id number]) [address] [place] [address] 61270 Ketones Ql (U) >80 Abnormal NEG [facility] Comment on above: Performed By: #### U A #### [facility] ([id number]) [address] [place] [address] 21399 Leukocyte esterase Test strip Ql (U) Trace Abnormal NEG [facility] Comment on above: Performed By: #### U A #### [facility] ([id number]) [address] [place] [address] 87255 MUCOUS PRESENT Abnormal NONE [facility] Comment on above: Performed By: #### U A #### [facility] ([id number]) [address] [place] [address] 31743 Nitrite Ql (U) Positive Abnormal NEG [facility] Comment on above: Performed By: #### U A #### [facility] ([id number]) [address] [place] [address] 89369 pH (U) 7.0 [pH] Normal 5.0-8.5 [facility] Comment on above: Performed By: #### U A #### [facility] ([id number]) [address] [place] [address] 01838 Protein Ql (U) 100 mg/dL Abnormal NEG [facility] Comment on above: Performed By: #### U A #### [facility] ([id number]) [address] [place] [address] 79030 R.B.CELLS 4 /hpf Normal 0-5 [facility] Comment on above: Performed By: #### U A #### [facility] ([id number]) [address] [place] [address] 64851 Specific gravity (U) [Rel density] 1.020 Normal 1.003-1.035 [facility] Comment on above: Performed By: #### U A #### [facility] ([id number]) [address] [place] [address] 26888 SQUAMOUS EPITHELIUM 38 /hpf High 0-5 [facility] Comment on above: Performed By: #### U A #### [facility] ([id number]) [address] [place] [address] 56038 TURBIDITY HAZY Abnormal CLEAR [facility] Comment on above: Performed By: #### U A #### [facility] ([id number]) [address] [place] [address] 86095 Urobilinogen Qn (U) 1.0 {Rod'U}/dL Normal <1.1 [facility] Comment on above: Performed By: #### U A #### [facility] ([id number]) [address] [place] [address] 09462 W.B.CELLS 20 /hpf High 0-5 [facility] Comment on above: Performed By: #### U A #### [facility] ([id number]) [address] [place] [address] 49191 URINE CULTUREon 12-06-2023 Bacteria identified Cx Nom (U) SPECIMEN NOTES URINE RECEIVED WITHOUT PRESERVATIVE CULTURE RESULTS NO GROWTH AT <1000 CFU/mL Normal [facility] Comment on above: Performed By: #### 6 30-4 #### [facility] ([id number]) [address], [address] [place] [address] [employer] 05-25-2022 Outside Records [id number] [id number]#[facility] Outside Records [id number]#[facility] [employer] 01-25-2022 Outside Records [id number][facility] Vital Signs Date Time Vital Sign Value Performing Clinician Faci lit 02-06-2024 13:11-0400 Body mass index (BMI) [Ratio] 35.36 kg/m2 Yusra MEAD Work Phone: [facility] 02-06-2024 13:11-0400 Body weight 93.44 kg Yusra MEAD Work Phone: [facility] 02-06-2024 13:11-0400 Diastolic blood pressure 68 mm[Hg] Yusra MEAD Work Phone: [facility] 02-06-2024 13:11-0400 Systolic blood pressure 108 mm[Hg] Yusra MEAD Work Phone: [facility] 01-30-2024 15:28-0400 Body mass index (BMI) [Ratio] 35.79 kg/m2 Anisa Elpidio DO Work Phone: [facility] 01-30-2024 15:28-0400 Body weight 94.58 kg Anisa Elpidio DO Work Phone: [facility] 01-30-2024 15:28-0400 Diastolic blood pressure 64 mm[Hg] Anisa Elpidio DO Work Phone: [facility] 01-30-2024 15:28-0400 Systolic blood pressure 106 mm[Hg] Anisa Elpidio DO Work Phone: [facility] Healthcare Encounters Encounter Date Encounter Type Care Provider Facility Start: 02-15-2024 End: 02-15-2024 Bamboo flowsheet Yusra MEAD Work Phone: [facility] Start: 02-15-2024 End: 02-15-2024 Bamboo flowsheet Yusra Muller PA Work Phone: [facility] Start: 02-15-2024 End: 02-15-2024 ambulatory YUSRA MULLER Not Available Start: 02-15-2024 End: 02-15-2024 Office outpatient visit 15 minutes Yusra MEAD Work Phone: [facility] Comment on above: Third trimester preg jory; 38 weeks gestation of Start: 02-06-2024 End: 02-06-2024 Bamboo flowsheet Yusra MEAD Work Phone: [facility] Start: 02-06-2024 End: 02-06-2024 Bamboo flowsheet Yusra MEAD Work Phone: [facility] Start: 02-06-2024 End: 02-06-2024 flow sheet Yusra MEAD Work Phone: [facility] Comment on above: Third trimester preg jory; 37 weeks gestation of Start: 02-06-2024 End: 02-06-2024 ambulatory YUSRA MULLER Not Available Start: 01-30-2024 End: 01-30-2024 Office outpatient visit 15 minutes Anisa Elpidio DO Work Phone: [facility] Comment on above: Third trimester preg jory; 36 weeks gestation of Start: 01-30-2024 End: 01-30-2024 ambulatory ANISA ELPIDIO Not Available Start: 01-30-2024 End: 01-30-2024 Bamboo flowsheet Anisa Elpidio DO Work Phone: [facility] Start: 01-30-2024 End: 01-30-2024 Bamboo flowsheet Anisa Elpidio DO Work Phone: [facility] Start: 01-29-2024 End: 01-29-2024 Bamboo flowsheet Anisa Elpidio DO Work Phone: [facility] Start: 01-29-2024 End: 01-29-2024 Bamboo flowsheet Anisa Elpidio DO Work Phone: [facility] Start: 01-04-2024 End: 01-04-2024 ambulatory ANISA ELPIDIO Not Available Start: 12-18-2023 End: 12-18-2023 ambulatory YUSRA MULLER Not Available Start: 12-06-2023 End: 12-06-2023 ambulatory BEN MONTALVO [facility] Start: 12-04-2023 End: 12-04-2023 ambulatory YUSRA MULLER Not Available Start: 10-23-2023 End: 10-23-2023 ambulatory ANISA ELPIDIO Not Available Start: 09-22-2023 End: 09-22-2023 ambulatory ANISA ELPIDIO Not Available Procedures Date Procedure Procedure Detail Performing Clinician Start: 02-15-2024 Urnls dip stick/tabl et rgnt non-auto w/o micrscp Yusra Muller PA Work Phone: Plan of Treatment Date Care Activity Detail Author Start: 02-13-2024 End: 02-13-2024 Patient encounter procedure 02/13/2024 1:00 PM EST Routine [facility] [address] [place] [id number] Anisa Magallanes, DO [address] [place] [address] [facility] Start: 02-06-2024 End: 02-06-2024 Patient encounter procedure [facility] Comment on above: Arrived Start: 01-30-2024 End: 01-30-2024 Patient encounter procedure 01/30/2024 3:00 PM EDT Routine [facility] [address] [place] [address] Anisa Magallanes, DO [address] [place], [place] [id number] Arrived [facility] Comment on above: Arrived Start: 01-30-2024 End: 01-29-2025 Strep B DNA probe, amplification Strep B DNA probe, amplification Lab Routine Third trimester Expected: 01/30/2024 (Approximate), Expires: 01/29/2025 [facility] Work Phone: Comment on above: Expected: 01/30/2024 (Approximate), Expires: 01/29/2025 Start: 01-29-2024 End: 01-29-2024 Patient encounter procedure 01/29/2024 1:50 PM EDT Routine [facility] [address] [place] [address] Anisa Magallanes, [address] [place], [place] [id number] Arrived [facility] Comment on above: Arrived Payers Date Payer Category Payer Medicaid [employer] [place] [place] [id number] 2022 Medicaid [id number] 2000 Unknown [id number] 2000 Unknown [id number] 2000 Unknown [id number] [id number] 2000 Unknown [id number] [id number] 2000 Unknown [id number] 2000 Unknown [id number] [id number] 2000 Unknown [id number] [id number] 2000 Unknown [id number] [id number] 2000 Unknown [id number] Social History Date Type Detail Facility Tobacco smoking stat [facility] Tobacco smoking consumption unknown [facility] Start: 06-05-2023 [facility] Start: 2000 Sex assigned at Not on file [facility] Gender identity Not on file [facility] History of Present illness Narrative 02-15-2024 ALYCE Butler - 02/15/2024 10:50 AM EST Note Date & Type Note Facility 02-15-2024 History of Presen t illness Narrative Reason for Appointment: Patient ID: Hina Smith is a 23 y.o. female who presents for Routine Visit Patient presents today for Return OB appointment. MEDICATIONS Current Outpatient Medications Medication Instructions DSS 100 mg, Oral, 3 times daily PRN omeprazole (PRILOSEC) 40 mg, Oral, Daily RT ondansetron ODT (ZOFRAN-ODT) 4 mg, Oral, Every 6 hours PRN ALLERGIES No Known Allergies PROBLEMS Active Ambulatory Problems Diagnosis Date Noted No Active Ambulatory Problems Resolved Ambulatory Problems Diagnosis Date Noted No Resolved Ambulatory Problems No Additional Past Medical History HISTORY PAST MEDICAL HISTORY SOCIAL HISTORY No past medical history on file. Social History Tobacco Use Smoking status: Not on file Smokeless tobacco: Not on file Substance Use Topics Alcohol use: Not on file Drug use: Not on file FAMILY HISTORY No family history on file. SURGICAL HISTORY History reviewed. No pertinent surgical history. REVIEW OF SYSTEMS Review of Systems: Review of Systems Constitutional: Negative. HENT: Negative. Eyes: Negative. Respiratory: Negative. Cardiovascular: Negative. Gastrointestinal: Negative. Genitourinary: Negative. Musculoskeletal: Negative. Skin: Negative. Neurological: Negative. All other systems reviewed and are negative. Hematological: Negative. Endocrine: Negative. Allergic/Immunologic: Negative. OBJECTIVE Objective: Physical Exam Constitutional: Appearance: Normal appearance. Genitourinary: Right Adnexa: not tender and no mass present. Left Adnexa: not tender and no mass present. No cervical discharge. Breasts: Breasts are soft. Right: Normal. Left: Normal. HENT: Head: Normocephalic. Nose: Nose normal. Mouth/Throat: Mouth: Mucous membranes are moist. Cardiovascular: Rate and Rhythm: Normal rate. Pulmonary: Effort: Pulmonary effort is normal. Abdominal: General: Bowel sounds are normal. Palpations: Abdomen is soft. Musculoskeletal: General: Normal range of motion. Cervical back: Normal range of motion. Neurological: General: No focal deficit present. Mental Status: She is alert. Skin: General: Skin is warm and dry. Psychiatric: Mood and Affect: Mood normal. Vitals and nursing note reviewed. Exam conducted with a refurbish technician present. Vitals: Estimated body mass index is 35.36 kg/m as calculated from the following: Height as of 09/22/23: 5' 4 . Weight as of 02/06/24: 206 lb. BP: Patient's last menstrual period was 05/29/2023. ASSESSMENT & PLAN ICD-10-CM 1. Third trimester Z34.93 2. 38 weeks gestation of Z3A.38 Return OB: Patient presents today for a routine obstetrics appointment. Patient is currently 38w3d . Pt does not desires to be preformed a vaginal check for dilation. Patient states she is doing well but has complaints of being tired due to current . Patient has verbalizes frequent movement. labor precautions was discussed/given and patient was instructed to perform kick counts three times a day. Pt signed her IOL forms today w/ Yusra Muller. No orders of the defined types were placed in this encounter. Follow Up: Patient is to return to office in 1 week for routine OB appointment. Documented by Karen Camargo LPN on behalf of: ALYCE Butler documented in this encounter [facility] History of Present illness Narrative 02-06-2024 ALYCE Butler - 02/06/2024 1:00 PM EDT Note Date & Type Note Facility 02-06-2024 History of Presen t illness Narrative Reason for Appointment: Patient ID: Hina Smith is a 23 y.o. female who presents for Routine Visit Patient presents today for a routine OB visit MEDICATIONS Current Outpatient Medications Medication Instructions DSS 100 mg, Oral, 3 times daily PRN omeprazole (PRILOSEC) 40 mg, Oral, Daily RT ondansetron ODT (ZOFRAN-ODT) 4 mg, Oral, Every 6 hours PRN ALLERGIES No Known Allergies PROBLEMS Active Ambulatory Problems Diagnosis Date Noted No Active Ambulatory Problems Resolved Ambulatory Problems Diagnosis Date Noted No Resolved Ambulatory Problems No Additional Past Medical History HISTORY PAST MEDICAL HISTORY SOCIAL HISTORY No past medical history on file. Social History Tobacco Use Smoking status: Not on file Smokeless tobacco: Not on file Substance Use Topics Alcohol use: Not on file Drug use: Not on file FAMILY HISTORY No family history on file. SURGICAL HISTORY No past surgical history on file. REVIEW OF SYSTEMS Review of Systems: Review of Systems Constitutional: Negative. HENT: Negative. Eyes: Negative. Respiratory: Negative. Cardiovascular: Negative. Gastrointestinal: Negative. Genitourinary: Negative. Musculoskeletal: Negative. Skin: Negative. Neurological: Negative. All other systems reviewed and are negative. Hematological: Negative. Endocrine: Negative. Allergic/Immunologic: Negative. OBJECTIVE Objective: Physical Exam Constitutional: Appearance: Normal appearance. She is normal weight. HENT: Head: Normocephalic. Cardiovascular: Rate and Rhythm: Normal rate. Pulses: Normal pulses. Pulmonary: Effort: Pulmonary effort is normal. Breath sounds: Normal breath sounds. Abdominal: Palpations: Abdomen is soft. Musculoskeletal: General: Normal range of motion. Neurological: General: No focal deficit present. Mental Status: She is alert and oriented to person, place, and time. Psychiatric: Mood and Affect: Mood normal. Behavior: Behavior normal. Thought Content: Thought content normal. Judgment: Judgment normal. Vitals and nursing note reviewed. Vitals: Estimated body mass index is 35.36 kg/m as calculated from the following: Height as of 09/22/23: 5' 4 . Weight as of this encounter: 206 lb. BP: 108/68 Patient's last menstrual period was 05/29/2023. ASSESSMENT & PLAN ICD-10-CM 1. Third trimester Z34.93 2. 37 weeks gestation of Z3A.37 Return OB: Patient presents today for a routine obstetrics appointment. Patient is currently 37w1d . Patient states she is doing well but has complaints of being tired due to current . Patient has verbalizes frequent movement. labor precautions was discussed/given and patient was instructed to perform kick counts three times a day. No orders of the defined types were placed in this encounter. Follow Up: Patient is to return to office in 1 week for routine OB appointment. Documented by Karen Camargo LPN on behalf of: ALYCE Butler documented in this encounter [facility] History of Present illness Narrative 01-30-2024 Annabel Ken LPN - 01/30/2024 3:00 PM EDT Note Date & Type Note Facility 01-30-2024 History of Presen t illness Narrative Reason for Appointment: Patient ID: Hina Smith is a 23 y.o. female who presents for Routine Visit Patient presents today for Return OB appointment. MEDICATIONS Current Outpatient Medications Medication Instructions DSS 100 mg, Oral, 3 times daily PRN omeprazole (PRILOSEC) 40 mg, Oral, Daily RT ondansetron ODT (ZOFRAN-ODT) 4 mg, Oral, Every 6 hours PRN ALLERGIES No Known Allergies PROBLEMS Active Ambulatory Problems Diagnosis Date Noted No Active Ambulatory Problems Resolved Ambulatory Problems Diagnosis Date Noted No Resolved Ambulatory Problems No Additional Past Medical History HISTORY PAST MEDICAL HISTORY SOCIAL HISTORY History reviewed. No pertinent past medical history. Social History Tobacco Use Smoking status: Not on file Smokeless tobacco: Not on file Substance Use Topics Alcohol use: Not on file Drug use: Not on file FAMILY HISTORY No family history on file. SURGICAL HISTORY History reviewed. No pertinent surgical history. REVIEW OF SYSTEMS Review of Systems: Review of Systems Constitutional: Negative. HENT: Negative. Eyes: Negative. Respiratory: Negative. Cardiovascular: Negative. Gastrointestinal: Negative. Genitourinary: Negative. Musculoskeletal: Negative. Skin: Negative. Neurological: Negative. All other systems reviewed and are negative. Hematological: Negative. Endocrine: Negative. Allergic/Immunologic: Negative. OBJECTIVE Objective: Physical Exam Constitutional: Appearance: Normal appearance. She is well-developed. Genitourinary: Vulva normal. Cardiovascular: Rate and Rhythm: Normal rate and regular rhythm. Pulmonary: Effort: Pulmonary effort is normal. Breath sounds: Normal breath sounds. Abdominal: General: Bowel sounds are normal. There is no distension. Palpations: Abdomen is soft. Tenderness: There is no abdominal tenderness. There is no guarding or rebound. Musculoskeletal: General: No swelling. Normal range of motion. Right lower leg: No edema. Left lower leg: No edema. Neurological: Mental Status: She is alert and oriented to person, place, and time. Skin: General: Skin is warm and dry. Psychiatric: Mood and Affect: Mood normal. Behavior: Behavior normal. Vitals and nursing note reviewed. Exam conducted with a refurbish technician present. Vitals: Estimated body mass index is 35.79 kg/m as calculated from the following: Height as of 09/22/23: 5' 4 . Weight as of this encounter: 208 lb 8 oz. BP: 106/64 Patient's last menstrual period was 05/29/2023. ASSESSMENT & PLAN ICD-10-CM 1. Third trimester Z34.93 Strep B DNA probe, amplification 2. 36 weeks gestation of Z3A.36 CANCELED: POCT urinalysis dipstick manually resulted Patient is doing well but has complaints of being tired and having maternal discomfort due to . Patient verbalized frequent movement and was instructed to perform kick counts three times per day. labor precautions were given, LARC consent was signed/declined, and GBS was obtained. Cervical check was performed and patient is 2cm dilated. Orders Placed This Encounter Procedures Strep B DNA probe, amplification Follow Up: Patient is to return to office in 1 week for routine OB appointment Documented by Annabel Ken LPN on behalf of: Anisa Magallanes DO documented in this encounter [facility] Evaluation note Note Date & Type Note Facility Evaluation note Diagnosis Third trimester state, incidental 36 weeks gestation of documented in this encounter [facility] Evaluation note Note Date & Type Note Facility Evaluation note Diagnosis Third trimester state, incidental 37 weeks gestation of documented in this encounter [facility] Evaluation note Note Date & Type Note Facility Evaluation note Diagnosis Third trimester state, incidental 38 weeks gestation of documented in this encounter [facility] Summary Purpose Family History No Family History Records FoundNo Family History Records FoundNo Family History Records Found Advance Directives No Advanced Directives Records FoundNo Advanced Directives Records FoundNo Advanced Directives Records Found Additional Source Comments INFORMATION SOURCE (unrecogn ized section and content) DATE CREATED AUTHOR 05/25/2022 [facility] DATE CREATED AUTHOR AUTHOR'S ORGANIZ ATION 12/08/2023 [facility] DATE CREATED AUTHOR AUTHOR'S ORGANIZ ATION 02/17/2024 [facility] EPIC Reason for Visit (unrecogniz ed section and content) Reason Comments Routine Visit FOR RECORDS PERTAINING TO PATIENTS WHO ARE [...] BE BASED ON THE PRIMARY CLINICAL RECORDS. [facility] [employer] [facility]. provides no warranty or guarantee of the accuracy or completeness of information in this document.
[2024-02-19] MEDS: OXYTOCIN/0.9 % SODIUM CHLORIDE 10 UNITS/500 ML PLAST..BAG 6 UNIT IV (07:30)
[2024-02-19] MEDS: 0.9 % SODIUM CHLORIDE 1,000 ML 125 ML IV (07:30)
[2024-02-19 07:38] LABS: Hematocrit 33.3 % (36.0-48.0); Hemoglobin 11.4 g/dL (12.0-16.0); Mean Corpuscular HGB Conc 34.2 g/dL (29.9-35.2); Mean Corpuscular Hemoglobin 31.1 pg (26.7-34.0); Mean Platelet Volume 12.1 fL (9.5-13.5); Platelet Count 139 10^3/uL (150-450); Red Blood Count 3.66 10^6/uL (4.20-5.40); White Blood Count 12.8 10^3/uL (4.0-11.0)
[2024-02-19] MEDS: ROPIVACAINE HCL/PF 400 MG/200 ML PREMIX 10 MG EPIDURAL (09:37)
[2024-02-19] MEDS: FENTANYL CITRATE/PF 100 MCG/2 ML VIAL EPIDURAL (09:45)
--- NOTE | 2024-02-19 10:02 | PM.OBPRCVD ---
Procedure Intrapartal events: None Induction method: per pitocin protocol Delivery augmentation: rupture of membranes and pitocin Delivery monitor: external FHT and external uterine Route of delivery: Episiotomy Description: none L&D Laceration Description: none Estimated blood loss (mL): 250 Anesthesia type: Epidural Disposition: floor Delivery date: 02/19/24 Gender: female presentation: vertex Placental delivery description: Spontaneous cord description: 3 Vessels
[2024-02-19] MEDS: OXYTOCIN/0.9 % SODIUM CHLORIDE 20 UNITS/1,000 ML PLAST..BAG 125 UNIT IV (10:12)
[2024-02-19] MEDS: BENZOCAINE/MENTHOL 85 GRAM SPRAY BOTTLE 1 APPLIC TOPICAL (16:30)
[2024-02-20 00:13] VITALS: BP 134/64; PULSE 76; TEMP 37
[2024-02-20 04:50] VITALS: BP 127/78; PULSE 88
[2024-02-20 07:12] LABS: Basophils Absolute Auto 0.1 10^3/uL (0.0-0.1); Basophils Percent Auto 0.5 % (0.2-2.0); Eosinophils Absolute Auto 0.2 10^3/uL (0.0-0.7); Eosinophils Percent Auto 1.4 % (0.9-7.0); Hematocrit 33.3 % (36.0-48.0); Hemoglobin 11.3 g/dL (12.0-16.0); Immature Granulocytes Abs Auto 0.04 10^3/uL (0.00-0.03); Immature Granulocytes Pct Auto 0.4 % (0.0-0.5); Lymphocytes Percent Auto 19.3 % (20.5-60.0); Mean Corpuscular HGB Conc 33.9 g/dL (29.9-35.2); Mean Corpuscular Hemoglobin 30.8 pg (26.7-34.0); Mean Corpuscular Volume 90.7 fL (81.0-99.0); Mean Platelet Volume 12.3 fL (9.5-13.5); Monocytes Absolute Auto 0.8 10^3/uL (0.3-0.8); Monocytes Percent Auto 7.9 % (1.7-12.0); Neutrophils Absolute Auto 7.4 10^3/uL (1.4-6.5); Neutrophils Percent Auto 70.5 % (43.0-75.0); Platelet Count 162 10^3/uL (150-450); Red Blood Count 3.67 10^6/uL (4.20-5.40); Red Cell Distribution Width 14.1 % (11.0-15.0); White Blood Count 10.5 10^3/uL (4.0-11.0)
[2024-02-20 08:07] VITALS: BP 130/73; PULSE 71; TEMP 36.7
--- NOTE | 2024-02-20 08:39 | PM.OBPN ---
OB - PN: Subj Subjective Patient comments: no complaints and pain well controlled [place] status: doing well Exam Constitutional Vital Signs, click to edit/add: Last Vital Signs Temp 98.1 F 02/20/24 08:07 Pulse 71 02/20/24 08:07 Resp 16 02/20/24 08:07 BP 130/73 02/20/24 08:07 O2 Del Method Room Air 02/20/24 08:07 Documenting provider has reviewed patient's vital signs: yes Common normals: no apparent distress Respiratory Common normals: normal respiratory effort and clear to auscultation bilaterally Cardio Common normals: regular rate and regular rhythm GI Common normals: Normal to inspection, nondistended, normoactive bowel sounds present Extremity Common normals: no calf tenderness Results Labs Labs: Short CBC 02/20/24 Range/Units 06:51 WBC 10.5 (4.0-11.0) 10^3/uL Hgb 11.3 L (12.0-16.0) g/dL Hct 33.3 L (36.0-48.0) % Plt Count 162 (150-450) 10^3/uL OB - PN: A/P Plan - Vaginal Delivery day: 1 Plan: routine care, discharge home and follow up 6 weeks Time Spent with Patient Time: Total time spent is greater than 50% in coordination of care (as documented) at patient's floor/unit and/or counseling patient: Total time spent with greater than 50% in coordination of care (as documented) at patient's floor/unit and/or counseling patient: less than 15 minutes
--- NOTE | 2024-02-20 10:44 | SWNOTE1 ---
SW consulted due to drug use throughout . SW spoke to nurse and she was not able to be tested on admission. Positive throughout , cord sent. No concerns, caring for baby appropriately. SW met with pt and father of baby. They voiced they have everything they need at home for baby. They have good support at home. They may or may not do WIC. Pt is attempting breast feeding at this time and not sure they will need WIC. They do have a 2 year old son in the home as well. Pt did use marijuana throughout for her nausea. She does not have a medical marijuana card.She does not plan on continuing use once home. SW advised to not do any kind of drugs/marijuana around child. SW and pt spoke about post- depression. Pt is aware of signs. At this time no further concerns. Advised pt and father of baby that SW is mandated acreage reporter and a report will be made to [facility] CPS. No further questions. PB called report to [facility] CPS. HIPAA form filled out and sent to
== END 2024-02-20 13:00 | disposition home or self-care (01) | DRG 560 ==
PROVIDERS: Admitting Provider Obstetrics & Gynecology; Visit Provider Obstetrics & Gynecology
DX: O26.893 Other specified pregnancy related conditions, third trimester (principal); Z67.11 Type A blood, Rh negative; Z87.59 Personal history of other complications of pregnancy, childbirth and the puerperium; Z3A.39 39 weeks gestation of pregnancy; Z37.0 Single live birth; Z87.440 Personal history of urinary (tract) infections
CPT/HCPCS: 36415; 59050; 59410; 80307; 82948; 85025; 85027; 86850; 86900; 86901; J2795; J3010

== ENCOUNTER 2024-02-21 08:38 | Outpatient (OUT) | payer MEDICAID, SELFPAY ==
--- OUTSIDE RECORDS SUMMARY | 2024-02-21 08:54 | XMS_ITS | CCD ---
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 12/06/2023 Active ondansetron 4 mg disintegrating oral tablet (10 sources) Serotonin-3 Receptor Antagonist Start: 01-29-2024 End: [...] Test Name Value Interpretation Reference Range Facil [facility] CBC WITH PLATELET NO DI FFERENTIALon 02-19-2024 Erythrocyte distribution width (RBC) [Ratio] 14 % 11.0 - 15.0 % [facility] Hematocrit (Bld) [Volume fraction] 33.3 % Low 36.0 - 48.0 % [facility] Healthcar e Hemoglobin (Bld) [Mass/Vol] 11.4 g/dL Low 12.0 - 16.0 g/dL [facility] Interpretation and review of laboratory results Abnormal [facility] MCH (RBC) [Entitic mass] 31.1 pg 26.7 - 34.0 pg [facility] MCHC (RBC) [Mass/Vol] 34.2 g/dL 29.9 - 35.2 g/dL [facility] MCV (RBC) [Entitic vol] 91 fL 81.0 - 99.0 fL [facility] Platelet mean volume (Bld) [Entitic vol] 12.1 fL 9.5 - 13.5 fL [facility] PLT 139 Low [facility] Healthcar e TB RBC 3.66 Low [facility] Healthcar e TB WBC 12.8 High [facility]car e [facility] Health[facility] e Urinalysis macro (dipstick) panel (U)on 02-15-2024 Bilirubin, UA Positive Negative - 4(70) +++ mg/dL [facility] Comment on above: small Blood, UA Negative Negative - 50 Jae/mcL [facility] Clarity, UA Cloudy [facility] Healthca re Color, UA Yellow [facility] e Glucose, UA Negative Negative - 2000(110) ++++ mg/dL [facility] Interpretation and review of laboratory results Abnormal [facility] Ketones, UA Positive Negative - 160(16) ++++ mg/dL [facility] Comment on above: trace Leukocytes, UA Positive Negative - 500+++ Allison/mcL [facility] Comment on above: small Nitrite, UA Negative Negative - Positive [facility] pH, UA 7 5 - 9 [facility] Protein, UA Positive Negative - 2000(20) ++++ mg/dL [facility] Comment on above: 30 Spec Grav, UA 1.03 1 - 1.03 [facility] Urobilinogen, UA 1.0 0.2 - 12 mg/dL [facility] Health[facility] e CBC AND AUTO DIFFon 12-06-19 24 ABSOLUTE BASOPHIL 0.0 X10E9/L Normal 0.0-0.2 [facility] Comment on above: Performed By: #### C HEMANT COOMBS, 0, 3083-04 #### [facility] ([id number]) [address] [place] [address] 13074 ABSOLUTE NEUTROPHIL 8.7 X10E9/L High 1.5-6.6 [facility] Comment on above: Performed By: #### Karthikeyan COOMBS CMP, 0, 3083-04 #### [facility] ([id number]) [address] [place] [address] 01052 Basophils/100 WBC (Bld) 0.3 % Normal [facility] Comment on above: Performed By: #### Karthikeyan COOMBS CMP, 0, 3083-04 #### [facility] ([id number]) [address] [place] [address] 61860 Eosinophils (Bld) [#/Vol] 0.1 10*3/uL Normal 0.0-0.4 [facility] Comment on above: Performed By: #### Karthikeyan COOMBS CMP, 0, 3083-04 #### [facility] ([id number]) [address] [place] [address] 23379 Eosinophils/100 WBC (Bld) 0.5 % Normal [facility] Comment on above: Performed By: #### C HEMANT COOMBS, 0, 3083-04 #### [facility] ([id number]) [address] [place] [address] 00356 Erythrocyte distribution width (RBC) [Ratio] 13.5 % Normal 11.5-15.0 [facility] Comment on above: Performed By: #### Karthikeyan COOMBS CMP, 0, 3083-04 #### [facility] ([id number]) [address] [place] [address] 52203 Hematocrit (Bld) [Volume fraction] 38.3 % Normal 35-47 [facility] Comment on above: Performed By: #### Karthikeyan COOMBS CMP, 0, 3083-04 #### [facility] ([id number]) [address] [place] [address] 01811 Hemoglobin (Bld) [Mass/Vol] 13.2 g/dL Normal 11.7-15.5 [facility] Comment on above: Performed By: #### Karthikeyan COOMBS CMP, 0, 3083-04 #### [facility] ([id number]) [address] [place] [address] 49135 Lymphocytes (Bld) [#/Vol] 1.3 10*3/uL Normal 1.0-3.5 [facility] Comment on above: Performed By: #### C HEMANT COOMBS, 0, 3083-04 #### [facility] ([id number]) [address] [place] [address] 07793 Lymphocytes/100 WBC (Bld) 12.5 % Normal [facility] Comment on above: Performed By: #### Karthikeyan COOMBS CMP, 0, 3083-04 #### [facility] ([id number]) [address] [place] [address] 29936 MCH (RBC) [Entitic mass] 31.2 pg Normal 27-34 [facility] Comment on above: Performed By: #### C HEMANT COOMBS, 0, 3083-04 #### [facility] ([id number]) [address] [place] [address] 18842 MCHC (RBC) [Mass/Vol] 34.5 g/dL Normal 32-36 [facility] Comment on above: Performed By: #### C HEMANT COOMBS, 0, 3083-04 #### [facility] ([id number]) [address] [place] [address] 77921 MCV (RBC) [Entitic vol] 90 fL Normal 80-100 [facility] Comment on above: Performed By: #### Karthikeyan COOMBS CMP, , 3083-04 #### [facility] ([id number]) [address] [place] [address] 44644 Monocytes (Bld) [#/Vol] 0.7 10*3/uL Normal 0-0.9 [facility] Comment on above: Performed By: #### Karthikeyan COOMBS CMP, 0, 3083-04 #### [facility] ([id number]) [address] [place] [address] 89563 Monocytes/100 WBC (Bld) 6.3 % Normal [facility] Comment on above: Performed By: #### C HEMANT COOMBS, 0, 3083-04 #### [facility] ([id number]) [address] [place] [address] 25971 Neutrophils/100 WBC (Bld) 80.4 % Normal [facility] Comment on above: Performed By: #### Karthikeyan COOMBS CMP, 0, 3083-04 #### [facility] ([id number]) [address] [place] [address] 59414 Platelet mean volume (Bld) [Entitic vol] 10.0 fL Normal 7-12 [facility] Comment on above: Performed By: #### C BCA, CMP, 2532-0, 3084-1 #### [facility] ([id number]) [address] [place] [address] 79544 Platelets (Bld) [#/Vol] 205 10*3/uL Normal 150-450 [facility] Comment on above: Performed By: #### C BCA, CMP, 2532-0, 3083-1 #### [facility] ([id number]) [address] [place] [address] 26236 RBC COUNT 4.25 X10E12/L Normal 3.80-5.20 [facility] Comment on above: Performed By: #### C BCA, CMP, 2532-0, 3083-1 #### [facility] ([id number]) [address] [place] [address] 09912 WBC (Bld) [#/Vol] 10.8 10*3/uL Normal 4.0-11.0 [facility] Comment on above: Performed By: #### C BCA, CMP, 2532-0, 3083-1 #### [facility] ([id number]) [address] [place] [address] 36231 COMPREHENSIVE METABOLIC PANE Sg 12-06-2023 Albumin [Mass/Vol] 3.7 g/dL Normal 3.2-5.3 [facility] Comment on above: Performed By: #### C BCA, CMP, 2532-0, 3083-1 #### [facility] ([id number]) [address] [place] [address] 66525 ALP [Catalytic activity/Vol] 86 U/L Normal 39-130 [facility] Comment on above: Performed By: #### C BCA, CMP, 2532-0, 3084-1 #### [facility] ([id number]) [address] [place] [address], [place] [address] ALT [Catalytic activity/Vol] 39 U/L High 0-31 [facility] Comment on above: Performed By: #### C BCA, CMP, 2-0, 3083-1 #### [facility] ([id number]) [address] [place] [address] 44969 Anion gap [Moles/Vol] 9 mmol/L Normal 5-15 [facility] Comment on above: Performed By: #### C BCA, CMP, 2-0, 3083-1 #### [facility] ([id number]) [address] [place] [address] 73050 AST [Catalytic activity/Vol] 40 U/L Normal 0-41 [facility] Comment on above: Performed By: #### C BCA, CMP, 0, 3083-04 #### [facility] ([id number]) [address] [place] [address] 06085 Bilirubin [Mass/Vol] 0.7 mg/dL Normal 0.3-1.2 [facility] Comment on above: Performed By: #### C BCA, CMP, 0, 3083-04 #### [facility] ([id number]) [address] [place] [address] 75542 Calcium [Mass/Vol] 8.8 mg/dL Normal 8.5-10.5 [facility] Comment on above: Performed By: #### C BCA, CMP, 2531-0, 3083-04 #### [facility] ([id number]) [address] [place] [address] 38274 Chloride [Moles/Vol] 104 mmol/L Normal 98-109 [facility] Comment on above: Performed By: #### C BCA, CMP, 2531-0, 3083-1 #### [facility] ([id number]) [address] [place] [address] 10752 CO2 [Moles/Vol] 21 mmol/L Low 22-32 [facility] Comment on above: Performed By: #### C HEMANT COOMBS, 0, 3083-04 #### [facility] ([id number]) [address] [place] [address] 83602 Creatinine [Mass/Vol] 0.65 mg/dL Normal 0.40-1.00 [facility] Comment on above: Result Comment: METH OD TRACEABLE TO IDMS STANDARD Performed By: #### C HEMANT COOMBS, 0, 3083-04 #### [facility] ([id number]) [address] [place] [address] 03610 eGFR (CKD-EPI) NON-RACE DEPENDENT >90 Normal >59 [facility] Comment on above: Result Comment: Reported eGFR is based on the CKD-EPI 2020 equation that does not use a race coefficient. Performed By: #### C HEMANT COOMBS, 0, 3083-04 #### [facility] ([id number]) [address] [place] [address] 84584 Glucose [Mass/Vol] 94 mg/dL Normal 65-99 [facility] Comment on above: Performed By: #### C HEMANT COOMBS, 0, 3083-04 #### [facility] ([id number]) [address] [place] [address] 70535 Potassium [Moles/Vol] 3.3 mmol/L Low 3.5-5.0 [facility] Comment on above: Performed By: #### C HEMANT COOMBS, 0, 3083-04 #### [facility] ([id number]) [address] [place] [address] 67025 Protein [Mass/Vol] 7.1 g/dL Normal 6.0-8.0 [facility] Comment on above: Performed By: #### C CORIN CMP, 2531-0, 3084-1 #### [facility] ([id number]) [address] [place] [address] 34003 Sodium [Moles/Vol] 134 mmol/L Normal 134-146 [facility] Comment on above: Performed By: #### C BCA, CMP, 2532-0, 3084-1 #### [facility] ([id number]) [address] [place] [address] 39858 Urea nitrogen [Mass/Vol] 9 mg/dL Normal 5-23 [facility] Comment on above: Performed By: #### C BCA, CMP, 2532-0, 3084-1 #### [facility] ([id number]) [address] [place] [address] 96986 LDH [Catalytic activity/Vol] on 12-06-2023 LDH 110 U/L Normal 100-235 [facility] Comment on above: Performed By: #### C BCA, CMP, 2532-0, 3083-1 #### [facility] ([id number]) [address] [place] [address] 48590 PROTEIN CREAT RATIOon 2023 RANDOM URINE PROTEIN 380 mg/L High <120 [facility] Comment on above: Performed By: #### U PCR #### [facility] ([id number]) [address] [place] [address] 53708 U/PRO/DRILLING SUPERVISOR RATIO CALC 0.09 Normal <0.2 [facility] Comment on above: Result Comment: Neph rotic Syndrome is associated with ratios >3.5 Performed By: #### U PCR #### [facility] ([id number]) [address] [place] [address] 94008 URINE CREATININE,RDM 433.01 mg/dL Normal [facility] Comment on above: Performed By: #### U PCR #### [facility] ([id number]) [address] [place] [address] 47571 URIC ACIDon 12-06-2023 Urate [Mass/Vol] 4.1 mg/dL Normal 2.6-7.2 [facility] Comment on above: Performed By: #### C BCA, CMP, 2532-0, 3084-1 #### [facility] ([id number]) [address] [place] [address] 49235 URINALYSISon 12-06-2023 Bilirubin Ql (U) Large Abnormal NEG [facility] Comment on above: Result Comment: Not confirmed, interpret positive results with caution. Performed By: #### U A #### [facility] ([id number]) [address] [place] [address] 38611 BLOOD/HGB Negative Normal NEG [facility] Comment on above: Performed By: #### U A #### [facility] ([id number]) [address] [place] [address] 07313 Color (U) YELLOW Normal YELLOW [facility] Comment on above: Performed By: #### U A #### [facility] ([id number]) [address] [place] [address] 53888 Glucose Ql (U) Negative Normal NEG [facility] Comment on above: Performed By: #### U A #### [facility] ([id number]) [address] [place] [address] 43984 Ketones Ql (U) >80 Abnormal NEG [facility] Comment on above: Performed By: #### U A #### [facility] ([id number]) [address] [place] [address] 03774 Leukocyte esterase Test strip Ql (U) Trace Abnormal NEG [facility] Comment on above: Performed By: #### U A #### [facility] ([id number]) [address] [place] [address] 38852 MUCOUS PRESENT Abnormal NONE [facility] Comment on above: Performed By: #### U A #### [facility] ([id number]) [address] [place] [address] 60085 Nitrite Ql (U) Positive Abnormal NEG [facility] Comment on above: Performed By: #### U A #### [facility] ([id number]) [address] [place] [address] 65876 pH (U) 7.0 [pH] Normal 5.0-8.5 [facility] Comment on above: Performed By: #### U A #### [facility] ([id number]) [address] [place] [address] 28860 Protein Ql (U) 100 mg/dL Abnormal NEG [facility] Comment on above: Performed By: #### U A #### [facility] ([id number]) [address] [place] [address] 67887 R.B.CELLS 4 /hpf Normal 0-5 [facility] Comment on above: Performed By: #### U A #### [facility] ([id number]) [address] [place] [address] 42952 Specific gravity (U) [Rel density] 1.020 Normal 1.003-1.035 [facility] Comment on above: Performed By: #### U A #### [facility] ([id number]) [address] [place] [address] 76183 SQUAMOUS EPITHELIUM 38 /hpf High 0-5 [facility] Comment on above: Performed By: #### U A #### [facility] ([id number]) [address] [place] [address] 46861 TURBIDITY HAZY Abnormal CLEAR [facility] Comment on above: Performed By: #### U A #### [facility] ([id number]) [address] [place] [address] 52745 Urobilinogen Qn (U) 1.0 {Rod'U}/dL Normal <1.1 [facility] Comment on above: Performed By: #### U A #### [facility] ([id number]) [address] [place] [address] 48448 W.B.CELLS 20 /hpf High 0-5 [facility] Comment on above: Performed By: #### U A #### [facility] ([id number]) [address] [place] [address] 95157 URINE CULTUREon 12-06-2023 Bacteria identified Cx Nom (U) SPECIMEN NOTES URINE RECEIVED WITHOUT PRESERVATIVE CULTURE RESULTS NO GROWTH AT <1000 CFU/mL Normal [facility] Comment on above: Performed By: #### 6 30-4 #### [facility] ([id number]) [address], [address] [place] [address] Outside [employer]son 05-25-2022 Outside Records [id number] [id number][facility] Outside Records [id number] 4838[facility] [employer] 01-25-2022 Outside Records [id number]#1.00[facility] Vital Signs Date Time Vital Sign Value Performing Clinician Catrina simons 02-06-2024 13:11040 Body mass index (BMI) [Ratio] 35.36 kg/m2 Yusra MEAD Work Phone: [facility] 02-06-2024 13: Body weight 93.44 kg Yusra MEAD Work Phone: [facility] 02-06-2024 13:11040 Diastolic blood pressure 68 mm[Hg] Yusra MEAD Work Phone: [facility] 02-06-2024 13:11-0400 Systolic blood pressure 108 mm[Hg] Yusra MEAD Work Phone: [facility] 01-30-2024 15:28-0400 Body mass index (BMI) [Ratio] 35.79 kg/m2 Anisa Elpidio DO Work Phone: [facility] 01-30-2024 15:28-0400 Body weight 94.58 kg Anisa Elpidio DO Work Phone: [facility] 01-30-2024 15:28-0400 Diastolic blood pressure 64 mm[Hg] Anisa Elpidio DO Work Phone: [facility] 01-30-2024 15:28-0400 Systolic blood pressure 106 mm[Hg] Anisa Elpidio DO Work Phone: [facility] Healthcare Encounters Encounter Date Encounter Type Care Provider Facility Start: 02-19-2024 End: 02-19-2024 [facility] Result Encounter Anisa Elpidio DO Work Phone: [facility] External Department Unsolicited Start: 02-19-2024 End: 02-19-2024 Clinisync Result Encounter Anisa Elpidio DO Work Phone: [facility] External Department Unsolicited Start: 02-15-2024 End: 02-15-2024 Bamboo flowsheet Yusra MEAD Work Phone: [facility] Start: 02-15-2024 End: 02-15-2024 Bamboo flowsheet Yusra MEAD Work Phone: [facility] Start: 02-15-2024 End: 02-15-2024 ambulatory YUSRA MULLER Not Available Start: 02-15-2024 End: 02-15-2024 Office outpatient visit 15 minutes Yusra MEAD Work Phone: [facility] Comment on above: Third trimester [...] Available Start: 12-06-2023 End: 12-06-2023 ambulatory B[facility] Start: 12-04-2023 End: 12-04-2023 ambulatory YUSRA MULLER Not Available Start: 10-23-2023 End: 10-23-2023 ambulatory ANISA ELPIDIO Not Available Start: 09-22-2023 End: 09-22-2023 ambulatory ANISA MAGALLANES Not Available Procedures Date Procedure Procedure Detail Performing Clinician Start: 02-19-2024 [facility] CBC WITH PLATEL ET NO DIFFERENTIAL Anisa Magallanes DO Work Phone: Start: 02-15-2024 Urnls dip stick/tabl et rgnt non-auto w/o micrscp Yusra MEAD Work Phone: Plan of Treatment Date Care Activity Detail Author Start: 02-13-2024 End: 02-13-2024 Patient encounter procedure 02/13/2024 1:00 PM EST Routine [facility] [address] [place] [address] Anisa Magallanes, DO [address] [place], [place] [id number] [facility] Start: 02-06-2024 End: 02-06-2024 Patient encounter procedure [facility] Comment on above: Arrived Start: 01-30-2024 End: 01-30-2024 Patient encounter procedure 01/30/2024 3:00 PM EDT Routine [facility] [address] [place] [id number] Anisa Magallanes, DO [address] [place] [address] Arrived [facility] Comment on above: Arrived Start: 01-30-2024 End: 01-29-2025 Strep B DNA probe, amplification Strep B DNA probe, amplification Lab Routine Third trimester Expected: 01/30/2024 (Approximate), Expires: 01/29/2025 [facility] Work Phone: Comment on above: Expected: 01/30/2024 (Approximate), Expires: 01/29/2025 Start: 01-29-2024 End: 01-29-2024 Patient encounter procedure 01/29/2024 1:50 PM EDT Routine [facility] [address] [place] [address] Anisa Magallanes, [address] [place] [address] Arrived [facility] Comment on above: Arrived Payers Date Payer Category Payer Medicaid [facility] [id number] 2022 Medicaid [id number] 2000 Unknown [id number] 2000 Unknown [id number] 2000 Unknown [id number] 2000 Unknown [id number] 2000 Unknown [id number] [id number] 2000 Unknown [id number] 2000 Unknown [id number] [id number] 2000 Unknown [id number] 2000 Unknown [id number] Social History Date Type Detail Facility Tobacco smoking stat [facility] Tobacco smoking consumption unknown [facility] [...] nursing note reviewed. Exam conducted with a efficiency expert present. Vitals: Estimated body mass index is [...] calculated from the following: Height as of 24: 5' 4 . Weight as of this [...] History of Present illness Narrative 01-30-2024 Annabel Ken, LINDSAY - 01/30/2024 3:00 PM EDT Note Date [...] nursing note reviewed. Exam conducted with a efficiency expert present. Vitals: Estimated body mass index is [...] section and content) DATE CREATED AUTHOR 05/25/2022 [facility] DATE CREATED AUTHOR AUTHOR'S ORGANIZ ATION 12/08/2023 [facility] DATE CREATED AUTHOR AUTHOR'S ORGANIZ ATION 02/17/2024 [facility] EPIC Reason for Visit (unrecogniz [...] BE BASED ON THE PRIMARY CLINICAL RECORDS. [facility]. provides no warranty or guarantee of the accuracy or completeness of information in this document.
--- NOTE | 2024-02-21 16:21 | PC.NURSE ---
Hina and 2 day old Lesli arrive for follow up appointment. Parents admit to being tired as were up all night with the baby States baby would wake every 1 hour and want to feed, when placed to breast would just go back to sleep. No latching during the night and parents gave supplemental formula to 5 ml at a time with oral syringe. Parents praised for feeding when was not latching. Mom denies having pump at home. [facility] Doctors form filled out and faxed for assistance obtaining a pump. Copy given to parents. VSS and assessment WNL for Hina, is still crampy. Encouraged to take Motrin 600mg every 6 hours for discomfort. Fundus firm u/1, mod rubra . Breasts soft, nipples intact, able to express colostrum by hand. Given hand pump kit to be able to pump every 90 minutes to 3 hours. To give infant any expressed milk, to amounts of 10-15 ml. Parents willing to give formula and breast milk as able. Confident in ability to feed child. Mother received message from [employer], to choose pump of her choice.. Baby Lesli with VSS and assessment WNL except for 10.9% weight loss. has had 2 wets and 1 dark stool since discharge yesterday. Diaper has small wet upon assessment. Feeding plan devised with parents to include pumping every 1-3 hours, more often is better during awake hours, feed any obtained colostrum to baby. use hand pump until electric pump arrives. Supplement with formula minimum of 5ml up to 15 ml every 1-3 hours. Continue to offer breast as supply increases to assist in latching and feeding. Plan to return 02/28/2024 for support. has PCP appointment 02/22/2024. Family leaves feeling confident in ability to care for .
[2024-02-21 16:22] VITALS: BP 116/79; PULSE 71; TEMP 36.6
== END 2024-02-21 14:00 | disposition home or self-care (01) ==
LOC: FBCO 08:39
PROVIDERS: Visit Provider Obstetrics & Gynecology
DX: Z39.2 Encounter for routine postpartum follow-up (principal)